=== PATIENT | male | born 1960 | race Caucasian/White ===

== ENCOUNTER 2019-11-27 12:07 | Day surgery (SDC) | payer BC, OTHER ==
[~2019-11-27] VITALS: Ht 185.4 cm; Wt 93.0 kg
--- NOTE | ~2019-11-27 | O ---
[facility] [place] [address] OPERATIVE REPORT Name: KAREN NARAYAN Room #: 448-P [facility]..#: [id number] Admission: 11/27/19 Attend Phys: John Johnson MD Discharge: Date of : 60 Report #: [id number] THIS REPORT FOR: cc: See Emmanuel MD, Christopher B. MD Chu,John Gonzalez MD ~ CC: Alexey Johnson PREOPERATIVE DIAGNOSIS: Chronic cholecystitis with cholelithiasis. POSTOPERATIVE DIAGNOSIS: Chronic cholecystitis with cholelithiasis. PROCEDURE PERFORMED: Laparoscopic cholecystectomy, attempted cholangiogram. SURGEON: John Johnson MD ANESTHESIA: General anesthesia. COMPLICATIONS: None. BLOOD LOSS: 5 mL. FINDINGS: Finding the cystic duct was too small to cannulate and was not able to perform an intraoperative cholangiogram. DESCRIPTION OF PROCEDURE: With the patient under general anesthesia, IV antibiotic was administered. Abdomen was prepped and draped in sterile fashion. The patient had a prior umbilical hernia repair. Incision was made about 2 inches above the umbilicus to avoid that area. After incising through the skin and subcutaneous tissue, the fascia was identified. The fascia was incised midline about a cm. A 0 Vicryl suture placed on the fascia. The abdominal wall lifted anteriorly. Veress needle was then placed through the peritoneum. Abdominal cavity was insufflated with CO2. After creating pneumoperitoneum pressure of 15, 11 mm trocar was placed through the peritoneum without difficulty. This was done under visualization. No harm to lung tissue. Laparoscopy showed the liver, which is interpreted as fatty on ultrasound to have mild changes, but no liver damage was identified. The gallbladder was identified. Two 5 mm trocars were at right upper quadrant. A third 5 mm trocar was placed in right epigastrium. Fundus of the gallbladder was lifted over the liver. Cephalad. The proximal gallbladder was identified. Here the adhesion was taken down without difficulty with cautery and blunt dissection. The fat and peritoneum over the cystic duct was then dissected. The cystic duct was isolated. The artery was also able to be visualized more cephalad in the triangle of Calot. The cystic duct gallbladder junction was then identified. Clip was placed here. The cystic duct was opened and the cystic duct was noted [address] [address] OPERATIVE REPORT Name: KAREN NARAYAN Room #: 448-P [facility]..#: [id number] Admission: 11/27/19 Attend Phys: John Johnson MD Discharge: Date of : 60 Report #: [id number] to be very small. I was not able to get cholangiogram catheter in it. Cholangiogram was then abandoned. Proximal cystic duct was then clipped x 2 and then divided. The cystic artery was isolated, clipped x 2 proximally and 1 distally and then divided. The gallbladder was free from the liver bed without difficulty. The gallbladder was placed in specimen bag, retrieved through the 11 mm trocar site. The gallbladder contained a single cm sized stone. There was cholesterolosis in the wall. No other lesion identified. Liver bed was checked. Hemostasis excellent. Clips were intact. No bleeding identified. No bile seen. Irrigation was aspirated out. The patient was then flattened out. CO2 was evacuated. Trocars removed. Fascia defect was closed with [id number] 0 Vicryl x 2. Skin was irrigated, closed with 5-0 PDS. Steri-Strip, Band-Aids applied. The patient tolerated the procedure well and was taken to recovery room. By: 2150 2218 John Johnson MD /nt
--- NOTE | ~2019-11-27 | H ---
[facility] [place] [address] HISTORY AND PHYSICAL Name: KAREN NARAYAN Room #: PRE [facility] M.R.#: [id number] Admission: Attend Phys: John Johnson MD Discharge: Date of : 60 Report #: [id number] THIS REPORT FOR: cc: See Emmanuel MD, Christopher B. MD Chu,John Gonzalez MD ~ CC: Alexey Johnson DATE OF SERVICE: 11/27/2019 PREOPERATIVE DIAGNOSES: Cholecystitis with cholelithiasis and abdominal pain. HISTORY OF PRESENT ILLNESS: The patient is a 58-year-old who has been complaining of issues with his gallbladder for 8-10 years. A few weeks ago, the patient had significant right upper quadrant pain going to his back. This was after drinking alcoholic beverage. Had an episode also occurring after eating spicy food. His pain was rated at 7.5/10. Gradually decreased after 15-20 minutes, but there was still discomfort there. He had another episode a few days later, which was less. He does complain of a sore back. No nausea, no vomiting. No diarrhea. Bowels are regular. Mild gassy and he does complain of bloating. No fevers or chills. No history of jaundice. No pasty stool or dark urine. The patient had an ultrasound performed that showed gallstones which are mobile on decubitus positioning. No tenderness. Common bile duct is normal, 2 mm. Fatty liver. He has renal calculi. The patient is recommended to have treatment for gallbladder disease, laparoscopic cholecystectomy is recommended. He is here for surgery. PAST MEDICAL HISTORY: He has a controlled high blood pressure. Elevated cholesterol, premature ventricular contractions. PAST SURGICAL HISTORY: Umbilical hernia repair in year 1999 without mesh. The patient is on hydrochlorothiazide. MEDICATIONS: Hydrochlorothiazide, metoprolol 12.5 mg twice a day, lisinopril, and statins. ALLERGIES: He is allergic to PENICILLIN as a child. FAMILY HISTORY: High blood pressure. allergies in the family, diabetes in grandparents. Sister with Bechet syndrome. SOCIAL HISTORY: The patient works as a financial systems manager. Does not smoke. Has an average drink a day. [facility] [address] [place] [address] HISTORY AND PHYSICAL Name: KAREN NARAYAN Room #: [facility]..#: [id number] Admission: Attend Phys: John Johnson MD Discharge: Date of : 60 Report #: [id number] REVIEW OF SYSTEMS: PVCs, rosacea. No chest pain, shortness of breath, palpitation. No numbness or weakness. No shortness of breath. PHYSICAL EXAMINATION: GENERAL: The patient is a well-nourished male in no acute distress. HEENT: Pupils react to light. Extraocular muscles are intact. Oropharynx is clear. NECK: Soft and supple, no masses, no JVD. LUNGS: Clear. HEART: Regular rate and rhythm. No murmur or gallop. ABDOMEN: Soft with mild tenderness in right upper quadrant. No mass, no ascites, no guarding, no rigidity. No recurrent inguinal hernia detected. EXTREMITIES: No cyanosis, clubbing or edema. Motor function is normal. Sensory exam normal. IMPRESSION: The patient is a 58-year-old with longstanding history of abdominal pain. The patient has a known gallbladder disease for a while. Recently had a confirmation ultrasound that did reveal gallstones. The patient is recommended to have his gallbladder removed. Laparoscopic cholecystectomy was discussed in detail. Risk of procedure including bleeding, infection, anesthetic risk, common bile duct injury, bile leak was discussed. The patient wishes to proceed. He will receive IV Levaquin prior to surgery. By: 0847 0911 John Johnson MD /nt
[~2019-11-27 12:07] MED LIST: HYDROCHLOROTHIA25 M1 PO; LIPITOR10 MG PO; PRINIVIL10 MG PO; TOPROL XL25 MG PO
[2019-11-27 13:52] VITALS: BP 122/71
[2019-11-27] MEDS ORDERED: HYDROCODON-ACE1 EAC7 PO (15:33)
[2019-11-27 18:00] VITALS: BP 119/72
--- NOTE | 2019-11-27 18:55 | NUR ---
ASSUMED CARE OF THE PT AT 1700. PT IS READY TO D/C, BUT WILL WAIT TO MAKE SURE PAINM IS CONTROLLED. SCD'S IN PLACE, IV DRY AND INTACT, VS ARE NORMAL. NO C/O PAIN, DID NOT EAT DINNER, TOLERATED FLUIDS WELL. LUNGS CLEAR AND PULSES ARE STRONG. FALL PRECAUTIONS IN PLACE, BED IN THE LOWEST POSITION AND CALL LIGHT IS WITHIN REACH. WILL CONTINUE TO MONITOR THE PT.
[2019-11-27 19:30] VITALS: BP 131/82
[2019-11-27 20:05] VITALS: BP 119/72
--- NOTE | 2019-11-27 23:14 | NUR ---
PATIENT'S PAIN 07/12, HAS VOIDED CLEAR YELLOW TWICE THIS EVENING. SALINE LOCK REMOVED FROM RIGHT HAND, BAND-AID APPLIED. DISCHARGE INSTRUCTIONS REVIEWED WITH PATIENT, WILL REPLACE BANDAIDS AFTER SHOWERS AND AVOID TUB BATHS AND LIFTING ANYTHING HEAVIER "THAN A TEA KETTLE" . TO ED PER WC FOR TO PICKUP TO TAKE HOME. SHE HAS FILLED HIS PRESCRIPTION FOR PAIN.
--- NOTE | 2019-11-28 08:48 | EKG ---
[facility] [place] [address] ELECTROCARDIOGRAM REPORT Name: KAREN NARAYAN Room #: DEP [facility].R.#: [id number] Admission: 11/27/19 Attend Phys: John Johnson MD Discharge: 11/27/19 Date of : 60 Report #: [id number] THIS REPORT FOR: cc: See Emmanuel MD, Christopher B. MD Lundgren, Craig H. MD [facility] ~ THIS REPORT FOR: //name// [facility] Test Date: 2019-11-27 Test Time: 13:06:00 Pat Name: KAREN NARAYAN Department: Room: Gender: Visitor Services Specialist: Salvatore CUEVAS : 1960 Requested By: John Johnson Order Number: [id number] MD: Wenceslao Crook Measurements Intervals Lovilia Rate: 57 P: 41 GA: 211 QRS: -9 QRSD: 85 T: 2 QT: 415 QTc: 404 Interpretive Statements Sinus bradycardia Prolonged GA interval No previous ECG available for comparison Electronically Signed On 11-28-2019 8:46:41 CDT by Wenceslao Crook [email or web address] <ELECTRONICALLY SIGNED> By: Wenceslao Crook MD, [facility] 11/28/19 0846 [id number] 1306 Wenceslao Crook MD, [facility] /EPI
--- NOTE | 2019-12-02 10:08 | PATH ---
[facility] [address] [place] [address] PATHOLOGY RPT PROCEDURE Name: KAREEM RESENDEZ Room #: DEP [facility]..#: [id number] Admission: 11/27/19 Date of : 60 Discharge: 11/27/19 Report #: [id number] Path Case #: [id number] [facility] Accession Number: [id number] . 01 Material submitted: . gallbladder - GALLBLADDER . 01 Clinical history: . Cholecystitis with cholelithiasis and abdominal pain . 02 Diagnosis: Gallbladder, cholecystectomy: - Mild chronic cholecystitis. - Cholelithiasis. - Cholesterolosis. (IUV:director global strategic publisher sales; 11/29/2019) MBR 11/29/2019 1615 Local . 02 Electronically signed: . Destiny Barton MD, Pathologist NPI- [id number] . 01 Gross description: . The specimen is received in formalin labeled "Kareem Resendez, gallbladder" and consists of a previously opened pink-rodriguez and fat encased gallbladder measuring 6.0 x 2.0 x 1.1 cm. The margin is inked black. Present within the container is a single oval smooth black calculus measuring 0.8 cm. The mucosa is green with yellow stippling and an average wall thickness of 0.1 cm. No masses are identified. Flight Control Manager sections are submitted in A1. (SDY; 11/28/2019) SYU/SYU 11/28/2019 1321 Local . 02 Pathologist provided ICD-10: K80.10, K82.4 . 02 CPT . 233539 Specimen Comment: A courtesy copy of this report has been sent to [phone] Specimen Comment: [id number] Specimen Comment: Report sent to / DR LIU Performed at: [address] [id number] MD Candido Mina MD Phone: [phone] Performed at: [address] [address] PATHOLOGY RPT PROCEDURE Name: KAREEM RESENDEZ S Room #: DEP [facility] Khris#: [id number] Admission: 11/27/19 Date of : 60 Discharge: 11/27/19 Report #: [id number] Path Case #: [id number] [address] [id number] MD Destiny Barton MD Phone: [phone]
== END 2019-11-27 23:15 | disposition home or self-care (01) ==
LOC: OR 12:07 → 4S 17:12 → OR 23:15
DX: K80.10 Calculus of gallbladder with chronic cholecystitis without obstruction (principal); I10 Essential (primary) hypertension; E78.00 Pure hypercholesterolemia, unspecified; Z98.890 Other specified postprocedural states; Z79.899 Other long term (current) drug therapy; Z82.49 Family history of ischemic heart disease and other diseases of the circulatory system; Z88.0 Allergy status to penicillin; Z11.59 Encounter for screening for other viral diseases
CPT/HCPCS: 10102; 50010; 50101; 50249; 50411; 50555; 50558; 51489; 52265; 53307; 53310; 53312; 55245; 55317; 56462; 56525; 56526; 56719; 62110; 62900; 70005